=== PATIENT | female | born 1965 | race Caucasian/White ===

== ENCOUNTER 2021-02-15 14:11 | Emergency (ER) | payer SELFPAY ==
[~2021-02-15] VITALS: Ht 165.1 cm; Wt 41.1 kg
[2021-02-15 14:13] VITALS: BP 127/76
[2021-02-16] MEDS ORDERED: AMIT50TA PO (17:54)
[2021-02-16] MEDS ORDERED: SYMB16INH INH (17:54)
[2021-02-16] MEDS ORDERED: ANOR1AER INH (17:54)
[2021-02-16] MEDS ORDERED: AMIT100TA PO (17:54)
== END 2021-02-15 15:30 | disposition left against medical advice (07) ==
LOC: M ED 14:11
DX: Z53.21 Procedure and treatment not carried out due to patient leaving prior to being seen by health care provider (principal)

== ENCOUNTER 2021-02-16 10:22 | Inpatient (IN) | payer MEDICARE, MEDICAID ==
[2021-02-16] VITALS (9 sets, daily range): BP systolic 87–101; BP diastolic 54–62; O2SAT 97
[~2021-02-16] VITALS: Ht 162.6 cm; Wt 42.8 kg
--- NOTE | 2021-02-16 11:14 | REP ---
INDICATION: DYSPNEA/COUGH. COMPARISON: No comparison study. TECHNIQUE: Portable upright AP chest radiograph. FINDINGS: The lungs are hyperinflated but free of infiltrate. Pleural angles are sharp. Heart size is normal. Pulmonary vasculature is not increased. EKG electrodes are seen. There is diffuse osteopenia. IMPRESSION: No active disease. <Electronically signed by Ronald Garnica > 02/16/21 [id number]
[2021-02-16 11:43] LABS: BASO # 0.1 10^3/uL (0.0-0.2); BASO % 0.6 % (0.0-1.0); EOS # 0.1 10^3/uL (0.0-0.5); EOS % 0.6 % (0.0-3.0); HEMATOCRIT 37.1 % (36.0-47.0); HEMOGLOBIN 11.9 g/dl (12.0-15.5); LYMPH % 11.5 % (24.0-44.0); MEAN CORPUSCULAR HEMOGLOBIN 29.5 pg (27.0-33.0); MEAN CORPUSCULAR HGB CONC 32.1 g/dl (32.0-36.5); MEAN CORPUSCULAR VOLUME 91.8 fl (80.0-96.0); MONO # 1.4 10^3/uL (0.0-0.8); MONO % 7.9 % (2.0-8.0); NEUTROPHILS # 13.7 10^3/uL (1.5-8.5); NEUTROPHILS % 78.4 % (36.0-66.0); PLATELET COUNT, AUTOMATED 117 10^3/uL (150-450); RED BLOOD COUNT 4.04 10^6/uL (4.00-5.40); WHITE BLOOD COUNT 17.4 10^3/uL (4.0-10.0)
[2021-02-16] MEDS ORDERED: COMBIVENT RESPIMAT 100-20MCG INHALER 4GM INH ONE (11:50)
[2021-02-16] MEDS ORDERED: ACETAMINOPHEN TAB 650MG DOSE (2X325MG) PO ONE (11:50)
[2021-02-16 12:38] LABS: ALBUMIN 2.6 GM/DL (3.2-5.2); ALT/SGPT 12 U/L (12-78); BILIRUBIN,DIRECT < 0.1 MG/DL (0.0-0.2); BILIRUBIN,TOTAL 0.7 MG/DL (0.2-1.0); BLOOD UREA NITROGEN 12 MG/DL (7-18); CALCIUM LEVEL 7.8 MG/DL (8.5-10.1); CARBON DIOXIDE LEVEL 15 MEQ/L (21-32); CHLORIDE LEVEL 108 MEQ/L (98-107); CK-MB VALUE MASS < 1.0 NG/ML (<3.6); CPK CREATINE PHOSPHOKINASE 77 U/L (26-192); CREATININE FOR GFR 1.28 MG/DL (0.55-1.30); GLOMERULAR FILTRATION RATE 45.9 (>51); GLUCOSE, FASTING 80 MG/DL (70-100); MB/CK RELATIVE INDEX 1.29 (< OR =4); NT-PRO BNP 1210 PG/ML (<125); POTASSIUM SERUM 5.3 MEQ/L (3.5-5.1); SODIUM LEVEL 135 MEQ/L (136-145); THYROID STIMULATING HORMONE 0.326 uIU/ML (0.358-3.740); TROPONIN I < 0.02 NG/ML (< 0.10)
[2021-02-16] MEDS ORDERED: ISOVUE-370 76% 100ML VIAL As Ordered ONE (13:57)
[2021-02-16] MEDS ORDERED: NS 500 ML IV ONE (14:00)
[2021-02-16] MEDS ORDERED: IPRATROPIUM 0.5MG/ALBUTEROL 2.5MG INH SOL UD 3ML (DUONEB) NEB ONE ×2 (14:15→15:10)
[2021-02-16] MEDS ORDERED: LevoFLOXacin IV 750 MG in IV 1 EA IV ONE (15:35)
[2021-02-16] MEDS ORDERED: NS 1,310 ML in IV 1 EA IV ONE (15:35)
--- NOTE | 2021-02-16 16:16 | REP ---
INDICATION: chest pain, sob. COMPARISON: Chest radiograph today. TECHNIQUE: CT angiogram chest performed following the intravenous administration of 100 cc of Isovue 370. Sagittal and coronal reconstruction images are performed. FINDINGS: Lungs: There are scattered interstitial fibrotic changes in both lung apices with mild bullous changes in these regions. There is mild ill-defined subpleural fibro atelectasis anteriorly in the right upper lobe and right middle lobe, and to a lesser extent in the anterior left upper lobe. There is diffuse thickening of bronchiolar morgan. There are inspissated secretions in left lower lobe bronchioles. Mediastinum: No adenopathy. Pulmonary arteries: No evidence of pulmonary embolism. Sadaf: No adenopathy. Axilla: No adenopathy. Pleura: No effusion. Heart: Not enlarged. Thoracic aorta: No aneurysm or dissection. Upper abdominal structures: Prior cholecystectomy. Visualized osseous structures: Unremarkable. IMPRESSION: No CT evidence of pulmonary embolism. Chronic fibrotic changes with mild subpleural fibro atelectatic change anteriorly. Diffuse thickening of bronchiolar morgan compatible with bronchitis and airway inflammatory disease. There are inspissated secretions in the left lower lobe bronchioles. <Electronically signed by Rich Souza > 02/16/21 [id number]
[2021-02-16] MEDS ORDERED: LEVALBUTEROL 1.25 MG/0.5 ML CONCENTRATE NEB NEB PRN (17:35)
[2021-02-16] MEDS ORDERED: ACETAMINOPHEN TAB 650MG DOSE (2X325MG) PO PRN (17:35)
[2021-02-16] MEDS ORDERED: AMIT50TA PO (17:54)
[2021-02-16] MEDS ORDERED: ANOR1AER INH (17:54)
[2021-02-16] MEDS ORDERED: AMIT100TA PO (17:54)
[2021-02-16] MEDS ORDERED: SYMB16INH INH (17:54)
[2021-02-16] MEDS ORDERED: HOME MED LIST COMPLETE! XX SCH (17:55)
--- NOTE | 2021-02-16 18:12 | HPEPDOC ---
[facility] Medical History & Physical Date of Admission Feb 16, 2021 Date of Service: Feb 16, 2021 Attending Physician: JACINTA PASTOR DO History and Physical CHIEF COMPLAINT: Shortness of breath HISTORY OF PRESENT ILLNESS: Patient is a 56-year-old female who presents to the hospital today with an increasing shortness of breath. Patient states that over the last week she has noticed more more shortness of breath. Patient states that she has a history of COPD and when she is walking around over the past week she notices that she needs to take a break because she is short of breath. Patient states that she has been feeling sick. Patient is also a been coughing which is been nonproductive. Patient is otherwise doing well. Patient denies any nausea or vomiting. Patient denies any diarrhea. Patient denies having any fevers. Patient states that she has not been eating or drinking a whole lot but is hu ngry currently. Patient recently quit smoking a few days ago she said. PAST MEDICAL HISTORY: 1. COPD. 2. Lupus. 3. Acute renal failure a few years ago secondary to lupus. PAST SURGICAL HISTORY: 1. Cholecystectomy. 2. . SOCIAL HISTORY: Patient says she recently quit smoking and denies alcohol or illicit drug use. Patient is disabled and lives with her son FAMILY HISTORY: Patient states cancer runs in the family ALLERGIES: Please see below. REVIEW OF SYSTEMS: General: Patient denies fevers HEENT: Patient denies headaches Cardiovascular: Patient denies chest pain Respiratory: Patient reports shortness of breath and cough as above GI: Patient denies abdominal pain, nausea, vomiting, diarrhea : Patient denies increased frequency or pain with urination Extremities: Patient denies swelling or pain in extremities Neurological: Patient denies numbness or tingling in legs Skin: Patient denies any new rashes or lesions. Hematologic: Patient denies any easy bruising. Lymphatic: Patient denies any lumps lumps or bumps in neck, axilla, or groin HOME MEDICATIONS: Please see below. PHYSICAL EXAMINATION: VITAL SIGNS: Temperature 99.3, pulse 81, respiratory rate 22, blood pressure 84/51, pulse oximetry 97% on room air. General: Alert and oriented female patient who was laying in bed when I walked in the room. Patient did not appear to be in acute distress. HEENT: Normocephalic, atraumatic, moist mucous membranes. Neck: No lymphadenopathy or thyromegaly Cardiac: Regular rate and rhythm, no murmurs, normal S1, normal S2 Pulm: Rhonchorous throughout the lung cook with end expiratory wheezing bilaterally Abd: Nondistended, nontender to palpation, normal bowel sounds Ext: No edema bilateral lower extremities Neuro: Patient was able to move all 4 extremities on command and reported equal sensation light touch in all 4 extremities. Skin: Skin of the head, neck, upper and lower extremities was examined did not show any evidence of rash or wounds. LABORATORY DATA: See below. IMAGING: Chest x-ray performed on 02/16/2021 was reported to show no active disease. CT angiogram of the chest performed on 02/16/2021 is reported to show no evidence of pulmonary embolism. Chronic fibrotic changes with mild subpleural fibrotic ectatic change anteriorly. Diffuse thickening of the bronchial morgan compatible with bronchitis and airway inflammatory disease. There are inspissated se cretions in the left lower lobe bronchial MICROBIOLOGY: Please see below. ASSESSMENT: 56-year-old female who presents with increased shortness of breath was found to be in a COPD exacerbation possibly secondary to parainfluenza virus and possibly pneumonia . PLAN: 1. Shortness of breath. This is mostly multifactorial secondary to a COPD exacerbation caused by parainfluenza virus. Patient may also have a pneumonia. Patient will be admitted and started on Levaquin and steroids. Patient received 10 mg of dexamethasone IV in the ambulance. Patient will be started on Solu- Medrol at this time and we will continue to monitor. 2. Hypotension. Patient appears underweight and may have low blood pressures at baseline however, patient's maps are less than 65. Patient will receive a full 30 cc/kg bolus and we will continue to recheck. Patient may need additional fluids. We will continue to monitor the patient's blood pressure and the patient will be admitted to the intensive care unit. 3. COPD exacerbation. Treatment as above. 4. Parainfluenza virus. Treatment as above. 5. Possible community-acquired pneumonia. Procalcitonin has been ordered and for the time being, patient will be on Levaquin as she has an allergy to penicillins. 6. Lupus. Patient is not on any medication she says for this and we will continue to monitor. 7. Hyperkalemia. Patient's potassium is 5.3 however, the patient's blood appeared to be hemolyzed. We will recheck at this time 8. DVT prophylaxis: Lovenox 9. CODE STATUS: Full code Disposition: Patient be admitted to the intensive care unit due to her hypo tension and need for hourly vitals. I do expect greater than two midnights. Vital Signs Vital Signs Date Time Temp Pulse Resp B/P (MAP) Pulse Ox O2 Delivery O2 Flow Rate FiO2 02/16/21 17:30 81 22 84/51 (62) 97 02/16/21 15:49 99.3 02/16/21 10:52 Room Air Laboratory Data Labs 24H Laboratory Tests 2 02/16/21 10:58: Immature Granulocyte % (Auto) 1.0, Neutrophils (%) (Auto) 78.4H, Lymphocytes (%) (Auto) 11.5L, Monocytes (%) (Auto) 7.9, Eosinophils (%) (Auto) 0.6, Basophils (%) (Auto) 0.6, Neutrophils # (Auto) 13.7H, Lymphocytes # (Auto) 2.0, Monocytes # (Auto) 1.4H, Eosinophils # (Auto) 0.1, Basophils # (Auto) 0.1, Nucleated Red Blood Cells % (auto) 0.0, Anion Gap 12, Glomerular Filtration Rate 45.9L, Calcium Level 7.8L, Total Bilirubin 0.7, Direct Bilirubin < 0.1, Aspartate Amino Transf (AST/SGOT) 23, Alanine Aminotransferase (ALT/SGPT) 12, Alkaline Phosphatase 106, Total Creatine Kinase 77, Creatine Kinase MB < 1.0, Creatine Kinase MB Relative Index 1.29, Troponin I < 0.02, ZO-Ocy-O-Type Natriuretic Peptide 1210H, Total Protein 6.0L, Albumin 2.6L, Albumin/Globulin Ratio 0.8L, Thyroid Stimulating Hormone (TSH) 0.326L 02/16/21 16:13: Lactic Acid Level 2.0 CBC/BMP Laboratory Tests 02/16/21 10:58 Microbiology Microbiology 02/16/21 Blood Culture, Received Pending 02/16/21 Blood Culture, Received Pending 02/16/21 Respiratory Virus Panel (PCR) (CRISTAL) - Final, Complete Parainfluenza 3 (Piv3) Home Medications Scheduled Amitriptyline HCl (Amitriptyline HCl) 50 Mg Tablet, 50 MG PO QHS TAKES WITH 100MG DOSE Amitriptyline HCl (Amitriptyline HCl) 100 Mg Tablet, 100 MG PO QHS TAKES WITH 50MG DOSE Budesonide/Formoterol (Symbicort 160-4.5 Mcg Inhaler) 6 Gm Hfa.aer.ad, 1 PUFF INH BID Umeclidinium Brm/Vilanterol Tr (Anoro Ellipta 62.5-25 Mcg INH) 1 Each Blst.w.dev, 1 PUFF INH DAILY Allergies Coded Allergies: erythromycin base (Verified Allergy, Severe, Throat swelling, 02/16/21) Penicillins (Verified Allergy, Intermediate, unknown, 02/15/21) cephalexin (Verified Allergy, Intermediate, UNKNOWN, 02/15/21) A-FIB/CHADSVASC A-FIB History Current/History of A-Fib/PAF?: No JACINTA PASTOR DO Feb 16, 2021 18:12
[2021-02-16] MEDS: IPRATROPIUM 0.5MG/ALBUTEROL 2.5MG INH SOL UD 3ML (DUONEB) NEB SCH (20:23)
[2021-02-16] MEDS: methylPREDNISolone 125MG 2ML VIAL IV SCH (20:36)
[2021-02-16 20:59] LABS: CALCIUM LEVEL 7.4 MG/DL (8.5-10.1); CREATININE FOR GFR 1.07 MG/DL (0.55-1.30); GLOMERULAR FILTRATION RATE 56.5 (>51); POTASSIUM SERUM 4.2 MEQ/L (3.5-5.1)
[2021-02-16 21:10] LABS: APPEARANCE, URINE HAZY (CLEAR); BACTERIA, URINE AUTO NEGATIVE (NEGATIVE); BILIRUBIN, URINE AUTO NEGATIVE (NEGATIVE); BLOOD, URINE BLOOD NEGATIVE (NEGATIVE); COLOR, URINE YELLOW (YELLOW); GLUCOSE, URINE (UA) AUTO NEGATIVE (NEGATIVE); KETONE, URINE AUTO 1+ mg/dL (NEGATIVE); LEUKOCYTE ESTERASE, URINE AUTO TRACE (NEGATIVE); NITRITE, URINE AUTO NEGATIVE (NEGATIVE); PROTEIN, URINE AUTO 1+ mg/dL (NEGATIVE); RBC, URINE AUTO 2 /HPF (0-3); SPECIFIC GRAVITY URINE AUTO 1.046 (1.002-1.035); SQUAMOUS EPITHELIAL CELL UR AU 9 /HPF (0-6); UROBILINOGEN, URINE AUTO 0.2 mg/dL (0.0-2.0); WBC, URINE AUTO 6 /HPF (0-3)
[2021-02-17] VITALS (13 sets, daily range): BP systolic 82–105; BP diastolic 48–61; O2SAT 98–99
[2021-02-17] MEDS: methylPREDNISolone 125MG 2ML VIAL IV SCH (04:28)
[2021-02-17 04:53] LABS: HEMATOCRIT 35.3 % (36.0-47.0); HEMOGLOBIN 11.8 g/dl (12.0-15.5); MEAN CORPUSCULAR HEMOGLOBIN 29.4 pg (27.0-33.0); MEAN CORPUSCULAR HGB CONC 33.4 g/dl (32.0-36.5); PLATELET COUNT, AUTOMATED 118 10^3/uL (150-450); RED BLOOD COUNT 4.01 10^6/uL (4.00-5.40); WHITE BLOOD COUNT 13.7 10^3/uL (4.0-10.0)
[2021-02-17 05:16] LABS: BLOOD UREA NITROGEN 18 MG/DL (7-18); CALCIUM LEVEL 8.4 MG/DL (8.5-10.1); CARBON DIOXIDE LEVEL 19 MEQ/L (21-32); CHLORIDE LEVEL 110 MEQ/L (98-107); CREATININE FOR GFR 1.01 MG/DL (0.55-1.30); GLOMERULAR FILTRATION RATE > 60.0 (>51); GLUCOSE, FASTING 143 MG/DL (70-100); MAGNESIUM LEVEL 2.3 MG/DL (1.8-2.4); POTASSIUM SERUM 4.3 MEQ/L (3.5-5.1); SODIUM LEVEL 137 MEQ/L (136-145)
--- NOTE | 2021-02-17 05:56 | ECGEPIP ---
[facility] - ED Test Date: 2021-02-16 Pat Name: MARLENE FIELD Department: Room: - Gender: Female Wire Weaver: JEET : 1965 Requested By: CHRISTINE Sun Order Number: [id number] Reading MD: Christophe Lewis Measurements Intervals [place] Rate: 102 P: 81 VA: 98 QRS: -19 QRSD: 68 T: 69 QT: 330 QTc: 430 Interpretive Statements Sinus tachycardia with short VA POSSIBLE INCOMPLETE RIGHT BUNDLE BRANCH BLOCK Nonspecific T wave abnormality NO PRIORS FOR COMPARISON Electronically Signed on 02-17-2021 5:56:00 EDT by Christophe Lewis
[2021-02-17] MEDS: IPRATROPIUM 0.5MG/ALBUTEROL 2.5MG INH SOL UD 3ML (DUONEB) NEB SCH ×4 (07:22→19:52)
[2021-02-17] MEDS: SYMBICORT 80/4.5MCG INHALER 6GM INH SCH ×2 (08:00→19:53)
[2021-02-17] MEDS ORDERED: FLUBLOK(EGG FREE)(QUAD)INFLUENZA VACC 0.5ML SYRINGE 18YRS & OLDER IM ONE (09:00)
[2021-02-17] MEDS: ENOXAPARIN 30MG/0.3ML SYRINGE (J1650 PER 10MG) SC SCH (09:31)
--- NOTE | 2021-02-17 11:20 | IPNPDOC ---
Text Note Date of Service The patient was seen on 02/17/21. NOTE Subjective: Patient stated that she feels better today, her breathing improved Objective: GENERAL APPEARANCE: NAD HEENT: no scleral icterus, no JVD, EOMI CARDIOVASCULAR: S1S2 LUNGS: Diminished lung sounds bilaterally ABDOMEN: soft & not tender w palpation MUSCULOSKELETAL: no cyanosis, no swelling INTEGUMENT: no generalized pallor NEUROLOGICAL: cranial nerve function from 2-12 intact, follows commands, speech not dysarthric Assessment and plan Patient is 56-year-old female who presents with increased shortness of breath was found to be in a COPD exacerbation possibly secondary to parainfluenza virus and possibly pneumonia. Community-acquired pneumonia/shortness of breath/parainfluenza infection/shortness of breath Viral superimposed with bacterial component. Patient has increased dyspnea, leukocytosis, cough and sputum production, increased level of procalcitonin which indicates bacterial component of pneumonia. Procalcitonin elevated to 0.3 Continue levofloxacin p.o. Prednisone 40 mg p.o. daily Continue inhalers Incentive spirometry Hypotension Patient received IV boluses, blood pressure in the morning 105/60 Continue to monitor Lupus Not in acute exacerbation Continue follow-up with whipper beater in the outpatient settings Hyperkalemia Resolved Protein calories malnutrition/cachexia BMI 16.2 Full steel burner assessment Ensure VS,Sandeepe, I+O VS, Fishbone, I+O Laboratory Tests 02/16/21 19:49 02/17/21 04:38 Vital Signs Date Time Temp Pulse Resp B/P (MAP) Pulse Ox O2 Delivery O2 Flow Rate FiO2 02/17/21 08:00 96.5 86 18 105/58 (74) 95 Room Air I&O- Last 24 Hours up to 6 AM 02/17/21 06:00 Intake Total 2620 ml Output Total 285 ml Balance 2335 ml FARHAT BARRERA DO Feb 17, 2021 11:20
[2021-02-17] MEDS ORDERED: predniSONE 20 MG TAB PO ONE (11:45)
[2021-02-17 12:59] LABS: FREE THYROXINE INDEX 3.4 % (1.3-4.8); T UPTAKE 37 % (30-39); THYROID STIMULATING HORMONE 0.244 uIU/ML (0.358-3.740); THYROXINE (T4) 9.3 UG/DL (4.5-12.0)
[2021-02-17] MEDS: LevoFLOXacin 750 MG TABLET PO SCH (13:26)
[2021-02-17] MEDS ORDERED: AMITRIPTYLINE 50 MG TAB PO SCH ×2 (21:00)
[2021-02-17] MEDS ORDERED: NS 1,000 ML IV SCH (22:05)
[2021-02-18 06:22] VITALS: BP 96/57
[2021-02-18] MEDS: LevoFLOXacin 750 MG TABLET PO SCH (06:22)
[2021-02-18 06:30] LABS: BASO % 0.1 % (0.0-1.0); HEMATOCRIT 33.9 % (36.0-47.0); HEMOGLOBIN 11.4 g/dl (12.0-15.5); LYMPH # 1.7 10^3/uL (1.5-5.0); LYMPH % 10.1 % (24.0-44.0); MEAN CORPUSCULAR HEMOGLOBIN 29.5 pg (27.0-33.0); MEAN CORPUSCULAR HGB CONC 33.6 g/dl (32.0-36.5); MEAN CORPUSCULAR VOLUME 87.8 fl (80.0-96.0); MONO # 1.5 10^3/uL (0.0-0.8); MONO % 9.1 % (2.0-8.0); NEUTROPHILS # 12.8 10^3/uL (1.5-8.5); NEUTROPHILS % 78.5 % (36.0-66.0); PLATELET COUNT, AUTOMATED 100 10^3/uL (150-450); RED BLOOD COUNT 3.86 10^6/uL (4.00-5.40)
[2021-02-18 06:35] LABS: WHITE BLOOD COUNT 16.3 10^3/uL (4.0-10.0)
[2021-02-18 06:56] LABS: ALBUMIN 2.2 GM/DL (3.2-5.2); BILIRUBIN,TOTAL 0.2 MG/DL (0.2-1.0); CALCIUM LEVEL 8.2 MG/DL (8.5-10.1); CREATININE FOR GFR 1.04 MG/DL (0.55-1.30); GLOMERULAR FILTRATION RATE 58.4 (>51); MAGNESIUM LEVEL 2.3 MG/DL (1.8-2.4); POTASSIUM SERUM 4.7 MEQ/L (3.5-5.1); TOTAL PROTEIN 5.2 GM/DL (6.4-8.2)
[2021-02-18] MEDS: IPRATROPIUM 0.5MG/ALBUTEROL 2.5MG INH SOL UD 3ML (DUONEB) NEB SCH (07:41)
[2021-02-18] MEDS: SYMBICORT 80/4.5MCG INHALER 6GM INH SCH (07:42)
[2021-02-18] MEDS: ENOXAPARIN 30MG/0.3ML SYRINGE (J1650 PER 10MG) SC SCH (08:59)
[2021-02-18] MEDS: MIDODRINE 5 MG TAB PO SCH ×2 (08:59→12:44)
[2021-02-18] MEDS ORDERED: predniSONE 20 MG TAB PO SCH (09:00)
[2021-02-18] MEDS ORDERED: LEVO750T13 PO (10:14)
[2021-02-18] MEDS ORDERED: PRED10TA2 PO (10:14)
--- NOTE | 2021-02-18 14:59 | DS.PDOC ---
Discharge Summary General Date of Admission Feb 16, 2021 at 17:32 Date of Discharge 02/18/21 Discharge Summary PROCEDURES PERFORMED DURING STAY: [None]. ADMITTING DIAGNOSES: Community-acquired pneumonia/shortness of breath/parainfluenza infection/shortness of breath Hypotension Lupus Hyperkalemia Protein calories malnutrition/cachexia DISCHARGE DIAGNOSES: Community-acquired pneumonia/shortness of breath/parainfluenza infection/shortness of breath Hypotension Lupus Hyperkalemia Protein calories malnutrition/cachexia COMPLICATIONS/CHIEF COMPLAINT: Copd Exacerbation, Hypotension, Parainfluenza. HISTORY OF PRESENT ILLNESS: Patient is a 56-year-old female who presents to the hospital today with an increasing shortness of breath. Patient states that over the last week she has noticed more more shortness of breath. Patient states that she has a history of COPD and when she is walking around over the past week she notices that she needs to take a break because she is short of breath. Patient states that she has been feeling sick. Patient is also a been coughing which is been nonproductive. Patient is otherwise doing well. Patient denies any nausea or vomiting. Patient denies any diarrhea. Patient denies having any fevers. Patient states that she has not been eating or drinking a whole lot but is hungry currently. Patient recently quit smoking a few days ago she said. HOSPITAL COURSE: During the hospital stay the following issue addressed Community-acquired pneumonia/shortness of breath/parainfluenza inf ection/shortness of breath Viral superimposed with bacterial component. Patient has increased dyspnea, leukocytosis, cough and sputum production, increased level of procalcitonin which indicates bacterial component of pneumonia. Procalcitonin elevated to 0.3 Continue levofloxacin p.o. Prednisone 40 mg p.o. daily Continue inhalers Incentive spirometry Hypotension Patient received IV boluses, blood pressure was stabilized Lupus Not in acute exacerbation Continue follow-up with splunk dashboard developer in the outpatient settings Hyperkalemia Resolved Protein calories malnutrition/cachexia BMI 16.2 Full regulatory technician assessment Ensure DISCHARGE MEDICATIONS: Please see below. ALLERGIES: Please see below. PHYSICAL EXAMINATION ON DISCHARGE: VITAL SIGNS: Please see below. GENERAL APPEARANCE: NAD HEENT: no scleral icterus, no JVD, EOMI CARDIOVASCULAR: S1S2 LUNGS: Diminished lung sounds bilaterally ABDOMEN: soft & not tender w palpation MUSCULOSKELETAL: no cyanosis, no swelling INTEGUMENT: no generalized pallor NEUROLOGICAL: cranial nerve function from 2-12 intact, follows commands, speech not dysarthric LABORATORY DATA: Please see below. PROGNOSIS: Fair ACTIVITY: [As tolerated]. DIET: Regular DISPOSITION: 01 Home, Self-Care. ITEMS TO FOLLOWUP ON ON OUTPATIENT: Follow-up with PCP DISCHARGE CONDITION: [Stable]. TIME SPENT ON DISCHARGE: 40minutes. Vital Signs/I&Os Vital Signs Date Time Temp Pulse Resp B/P (MAP) Pulse Ox O2 Delivery O2 Flow Rate FiO2 02/18/21 06:22 97.5 64 16 96/57 (70) 96 Room Air I&O- Last 24 Hours up to 6 AM 02/18/21 06:00 Intake Total 1200 ml Output Total 290 ml Balance 910 ml Laboratory Data Labs 24H Laboratory Tests 2 02/18/21 06:15: Immature Granulocyte % (Auto) 2.2, Neutrophils (%) (Auto) 78.5H, Lymphocytes (%) (Auto) 10.1L, Monocytes (%) (Auto) 9.1H, Eosinophils (%) (Auto) 0.0, Basophils (%) (Auto) 0.1, Neutrophils # (Auto) 12.8H, Lymphocytes # (Auto) 1.7, Monocytes # (Auto) 1.5H, Eosinophils # (Auto) 0.0, Basophils # (Auto) 0.0, Nucleated Red Blood Cells % (auto) 0.0, Anion Gap 3L, Glomerular Filtration Rate 58.4, Calcium Level 8.2L, Magnesium Level 2.3, Total Bilirubin 0.2#, Aspartate Amino Transf (AST/SGOT) 13, Alanine Aminotransferase (ALT/SGPT) 18, Alkaline Phosphatase 82, Total Protein 5.2L, Albumin 2.2L, Albumin/Globulin Ratio 0.7L CBC/BMP Laboratory Tests 02/18/21 06:15 Microbiology Microbiology 02/16/21 Blood Culture - Preliminary, Resulted No growth after 24 hours . All specim... 02/16/21 Blood Culture - Preliminary, Resulted No growth after 24 hours . All specim... 02/16/21 Respiratory Virus Panel (PCR) (CRISTAL) - Final, Complete Parainfluenza 3 (Piv3) Discharge Medications Scheduled Amitriptyline HCl (Amitriptyline HCl) 50 Mg Tablet, 50 MG PO QHS, (Reported) TAKES WITH 100MG DOSE Amitriptyline HCl (Amitriptyline HCl) 100 Mg Tablet, 100 MG PO QHS, (Reported) TAKES WITH 50MG DOSE Budesonide/Formoterol (Symbicort 160-4.5 Mcg Inhaler) 6 Gm Hfa.aer.ad, 1 PUFF INH BID, (Reported) Levofloxacin (Levofloxacin) 750 Mg Tablet, 750 MG PO DAILY@0600 Prednisone (Prednisone) 10 Mg Tablet, 10 MG PO TAPER Take 4 tabs daily x 3 days, then 3 tabs daily x 3 days, then 2 tabs daily x 3 days, then 1 tab daily x 3 days and stop Umeclidinium Brm/Vilanterol Tr (Anoro Ellipta 62.5-25 Mcg INH) 1 Each Blst.w.dev, 1 PUFF INH DAILY, (Reported) Allergies Coded Allergies: erythromycin base (Verified Allergy, Severe, Throat swelling, 02/16/21) Penicillins (Verified Allergy, Intermediate, unknown, 02/15/21) cephalexin (Verified Allergy, Intermediate, UNKNOWN, 02/15/21) FARHAT BARRERA DO Feb 18, 2021 14:59
[2021-02-18] MEDS ORDERED: LevoFLOXacin 750 MG TABLET PO SCH (18:00)
[2021-02-18] MEDS ORDERED: LevoFLOXacin IV 750 MG in IV 1 EA IV SCH (18:00)
== END 2021-02-18 13:15 | disposition home or self-care (01) | DRG 190 ==
LOC: EDBD 10:22 → M ED 10:22 → M ED INP 17:32 → M PCU 19:02 → M MS5PR 02-17 20:30
PROVIDERS: ADMIT Family Medicine; ATTEND Family Medicine
DX: J44.1 Chronic obstructive pulmonary disease with (acute) exacerbation (principal); J12.2 Parainfluenza virus pneumonia; E46 Unspecified protein-calorie malnutrition; Z68.1 Body mass index [BMI] 19.9 or less, adult; R64 Cachexia; F17.210 Nicotine dependence, cigarettes, uncomplicated; M32.9 Systemic lupus erythematosus, unspecified; Z90.49 Acquired absence of other specified parts of digestive tract; I95.9 Hypotension, unspecified; E87.5 Hyperkalemia; Z79.899 Other long term (current) drug therapy; Z88.0 Allergy status to penicillin; Z88.1 Allergy status to other antibiotic agents; R63.6 Underweight